=== PATIENT | male | born 1975 | race Caucasian/White ===

== ENCOUNTER 2020-02-02 14:34 | Emergency (ER) | payer SELFPAY ==
[~2020-02-02] VITALS: Ht 182.9 cm; Wt 99.8 kg
[2020-02-02 14:43] VITALS: BP 132/74
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
[2020-02-02 15:58] LABS: APPEARANCE,URINE SLIGHTLY CLOUDY; BILIRUBIN, URINE NEGATIVE (NEGATIVE); GLUCOSE, URINE (UA) NEGATIVE (NEGATIVE); KETONES,URINE 3+ (NEGATIVE); LEUKOCYTE ESTERASE ,URINE 1+ (NEGATIVE); NITRITE,URINE NEGATIVE (NEGATIVE); PH,URINE 5 (4.5-8.0); PROTEIN,URINE 2+ (NEGATIVE); UROBILINOGEN,URINE 1 MG/DL (0.0-1.0)
[2020-02-02 16:12] LABS: BASOPHILS % (AUTO) 0.8 % (0.0-2.0); EOSINOPHILS % (AUTO) 0.3 % (0.0-3.0); HEMATOCRIT 51.2 % (42.0-52.0); LYMPHOCYTES % (AUTO) 30.9 % (20.0-45.0); MEAN CORPUSCULAR VOLUME 92 FL (80-99); MONOCYTES % (AUTO) 5.6 % (1.0-10.0); NEUTROPHILS % (AUTO) 62.3 % (45.0-75.0); PLATELET COUNT 401 K/UL (150-450); RED BLOOD COUNT 5.58 M/UL (4.70-6.10); RED CELL DISTRIBUTION WIDTH 11.3 % (11.6-14.8); WHITE BLOOD COUNT 14.8 K/UL (4.8-10.8)
--- NOTE | 2020-02-02 16:15 | NUR ---
ED Nurse Note: Patient started to stand on exam chain in RME room, staff advised to get off the chair. Patient started tearing ceiling tiles down. Patient appeared calm while doing so, started tering sharps container off the wall, throwing boxes of gloves, opening cupboards and throwing items inside. All behavior was unprovoked, and patient continued to do so while repeatedly being advised not to and redirected by staff.
[2020-02-02 16:21] VITALS: BP 135/77
[2020-02-02 16:21] LABS: ANION GAP 12 mmol/L (5-15); BLOOD UREA NITROGEN 20 mg/dL (7-18); CALCIUM 9.6 MG/DL (8.5-10.1); CARBON DIOXIDE 25 MMOL/L (21-32); CHLORIDE 103 MMOL/L (98-107); CREATININE 1.3 MG/DL (0.55-1.30); POTASSIUM 3.5 MMOL/L (3.5-5.1); SODIUM 140 MMOL/L (136-145)
[2020-02-02 16:25] LABS: ALANINE AMINOTRANSFERASE 88 U/L (12-78); ALBUMIN 5.2 G/DL (3.4-5.0); ALBUMIN/GLOBULIN RATIO 1.5 (1.0-2.7); ALKALINE PHOSPHATASE 72 U/L (46-116); ASPARTATE AMINO TRANSFERASE 34 U/L (15-37)
[2020-02-02] MEDS ORDERED: LORazepam Inj 2mg/ml 1ml IM ONE (16:30)
[2020-02-02] MEDS ORDERED: DiphenhydrAMINE 50mg/ml Inj IM ONE (16:30)
[2020-02-02] MEDS ORDERED: Haloperidol 5mg/ml Inj IM ONE (16:30)
[2020-02-02 16:35] VITALS: BP 131/74
[2020-02-02 16:40] LABS: COLOR,URINE YELLOW
--- NOTE | 2020-02-02 16:50 | NUR ---
ED Nurse Note: Report given to Benny LAKE
[2020-02-02] MEDS ORDERED: CEPHALEXIN500 MG ORAL (16:56)
[2020-02-02] MEDS ORDERED: cefTRIAXone 1 GM in NS 55 ML IVPB ONE (17:00)
--- NOTE | 2020-02-02 19:02 | NUR ---
HAND-OFF: Report given to Katy LAKE.
[2020-02-02 19:05] VITALS: BP 134/83
--- NOTE | 2020-02-02 19:05 | NUR ---
ED Nurse Note: Report received from ALEKSANDRA Rose. Pt is in bed with eyes closed and appears to be asleep. NAD. Pt vital signs are stable. RN is bedside as sitter and all safety measures in place.
--- NOTE | 2020-02-02 20:40 | NUR ---
ED Nurse Note: Pt is sleeping in bed at this time. No signs of aggressive behavior noted. No acute distress, breathing is normal and unlabored. RN is bedside monitoring pt. All safety measures in place.
[2020-02-02 23:20] VITALS: BP 127/79
--- NOTE | 2020-02-02 23:20 | NUR ---
ED Nurse Note: Report given to ALEKSANDRA Galdamez. Pt is in bed sleeping with no acute distress. RN bedside as sitter, safety measures in place.
--- NOTE | 2020-02-03 00:35 | NUR ---
ED Nurse Note: COVID swab sent to lab
[2020-02-03 01:10] VITALS: BP 131/82
--- NOTE | 2020-02-03 01:10 | NUR ---
ED Nurse Note: pt sleeping comfortably in bed, VSS no ss of distress noted. will continue to monitor.
--- NOTE | 2020-02-03 03:12 | NUR ---
ED Nurse Note: pt resting in bed, VSS no ss of distress noted. will continue to monitor.
[2020-02-03 03:13] VITALS: BP 135/84
[2020-02-03 05:12] VITALS: BP 136/82
[2020-02-03 07:00] VITALS: BP 134/88
--- NOTE | 2020-02-03 07:06 | NUR ---
HAND-OFF: Report given to ALEKSANDRA Wolff.
--- NOTE | 2020-02-03 07:20 | NUR ---
ED Nurse Note: Pt does not have IV access upon inspection
--- NOTE | 2020-02-03 07:21 | NUR ---
ED Nurse Note: Report received from ALEKSANDRA Galdamez. Pt sleeping in bed with no signs of distress. Vitals stable as documented. Respirations even and unlabored on room air.
--- NOTE | 2020-02-03 08:50 | NUR ---
ED Nurse Note: breakfast provided for patient
--- NOTE | 2020-02-03 09:02 | NUR ---
ED Nurse Note: pt awake and using bathroom
--- NOTE | 2020-02-03 09:56 | NUR ---
ED Nurse Note: pt reports home address as [address] He also gave his sister, Ramona's phone number to contact her - [phone]. Raomna was called and line says "busy." Will try back later.
[2020-02-03 10:56] VITALS: BP 137/82
[2020-02-03] MEDS ORDERED: CEPHALEXIN500 MG ORAL (13:48)
[2020-02-03] MEDS ORDERED: Haloperidol Decanoate (Long Acting) 50mg Inj IM SCH (14:00)
--- NOTE | 2020-02-03 14:00 | NUR ---
5150 hold has been lifted by dr ojeda
[2020-02-03 14:20] VITALS: BP 134/79
--- NOTE | 2020-02-03 14:20 | NUR ---
ER DISCHARGE NOTE: Pt provided address and said he would walk home. Patient is cleared to be discharged per ERMD, pt is aox4, on room air, with stable vital signs. pt was given dc and prescription instructions, pt was able to verbalize understanding, pt id band removed without complications. Pt did not have IV access. pt is able to ambulate with steady gait. pt took all belongings.
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
== END 2020-02-03 14:20 | disposition home or self-care (01) ==
LOC: EDBD 14:34 → EMR 16:17
DX: N39.0 Urinary tract infection, site not specified (principal); R45.1 Restlessness and agitation; F29 Unspecified psychosis not due to a substance or known physiological condition
CPT/HCPCS: 36415; 80053; 80307; 81003; 85025; 87086; 96365; 96372; 99285; G0480; J0696; J1200; J1630; J1631; U0002